=== PATIENT | male | born 1955 | race Caucasian/White ===

== ENCOUNTER → 2019-09-27 08:19 | Outpatient (BNVA) | payer MEDICARE, SELFPAY | PROVIDERS: Family Provider Family Medicine; PCP Family Medicine; Visit Provider Nurse Practitioner | DX: M54.5 Low back pain (principal); M46.1 Sacroiliitis, not elsewhere classified; F17.220 Nicotine dependence, chewing tobacco, uncomplicated; Z79.891 Long term (current) use of opiate analgesic | CPT/HCPCS: 99213 ==

== ENCOUNTER → 2019-11-22 10:33 | Outpatient (BNVA) | payer MEDICARE, SELFPAY | PROVIDERS: Family Provider Family Medicine; PCP Family Medicine; Visit Provider Anesthesiology | DX: M54.5 Low back pain (principal); M46.1 Sacroiliitis, not elsewhere classified; F17.220 Nicotine dependence, chewing tobacco, uncomplicated; Z79.891 Long term (current) use of opiate analgesic; Z71.6 Tobacco abuse counseling | CPT/HCPCS: 99214 ==

== ENCOUNTER → 2020-03-20 10:03 | Outpatient (BNVA) | payer MEDICARE, SELFPAY | PROVIDERS: Family Provider Family Medicine; PCP Family Medicine; Visit Provider Nurse Practitioner | DX: M54.42 Lumbago with sciatica, left side (principal); M54.9 Dorsalgia, unspecified; F17.220 Nicotine dependence, chewing tobacco, uncomplicated; Z79.891 Long term (current) use of opiate analgesic | CPT/HCPCS: 99213 ==

== ENCOUNTER → 2020-05-21 08:04 | Outpatient (BNVA) | payer MEDICARE, SELFPAY | PROVIDERS: Family Provider Family Medicine; PCP Family Medicine; Visit Provider Anesthesiology | DX: M54.42 Lumbago with sciatica, left side (principal); M54.9 Dorsalgia, unspecified; F17.220 Nicotine dependence, chewing tobacco, uncomplicated; Z79.899 Other long term (current) drug therapy; Z71.6 Tobacco abuse counseling | CPT/HCPCS: 99214 ==

== ENCOUNTER → 2020-07-15 09:31 | Outpatient (BNVA) | payer MEDICARE, SELFPAY | PROVIDERS: Family Provider Family Medicine; PCP Family Medicine; Visit Provider Anesthesiology | DX: M54.42 Lumbago with sciatica, left side (principal); M54.9 Dorsalgia, unspecified; F17.220 Nicotine dependence, chewing tobacco, uncomplicated; Z79.891 Long term (current) use of opiate analgesic; Z71.6 Tobacco abuse counseling | CPT/HCPCS: 99214 ==

== ENCOUNTER → 2020-09-23 13:16 | Outpatient (BNVA) | payer MEDICARE, SELFPAY | PROVIDERS: Family Provider Family Medicine; PCP Family Medicine; Visit Provider Nurse Practitioner | DX: M54.9 Dorsalgia, unspecified (principal); M46.1 Sacroiliitis, not elsewhere classified; F17.220 Nicotine dependence, chewing tobacco, uncomplicated; Z87.81 Personal history of (healed) traumatic fracture; Z79.891 Long term (current) use of opiate analgesic; Z79.899 Other long term (current) drug therapy | CPT/HCPCS: 99213; 99214 ==